=== PATIENT | male | born 1970 | race Caucasian/White ===

== ENCOUNTER 2019-03-17 20:01 | Emergency (ER) | payer SELFPAY ==
[~2019-03-17] VITALS: Ht 167.6 cm; Wt 74.8 kg
[2019-03-17 20:03] VITALS: BP 167/104
--- NOTE | 2019-03-17 20:40 | NUR ---
BIBA TO ER BED 7
[2019-03-17] MEDS ORDERED: FAMOTIDINE 20 MG/2 ML VIAL IVP ONE (20:45)
[2019-03-17] MEDS ORDERED: ONDANSETRON 4 MG/2 ML VIAL IVP ONE (20:45)
[2019-03-17] MEDS ORDERED: NACL 0.9% 1,000 ML IV ONE (20:45)
--- NOTE | 2019-03-17 20:45 | NUR ---
PT BIBA FROM HOME; C/O ETOH INTOXiCATION AND POSSIBLE HEMATEMESIS X 1 DAY.
[2019-03-17 21:06] VITALS: BP 142/82
--- NOTE | 2019-03-17 21:08 | NUR ---
Patient does not wish to proceed with medical care recommended by Dr Serrano. Patient given information related to possible complications, up to significant blood loss and including , which could occur as a result of leaving hospital at this time. Patient verbalizes understanding of risks involved leaving against medical advice. Patient has signed AMA form. Pt noted ambulating with steady gait. Denies dizziness or loss of balance. Family to pear picker pt.
== END 2019-03-17 21:07 | disposition left against medical advice (07) ==
LOC: MED 20:01
DX: F10.129 Alcohol abuse with intoxication, unspecified (principal); K92.0 Hematemesis
CPT/HCPCS: 99283